=== PATIENT | female | born 1970 | race Two or more races ===

== ENCOUNTER 2019-06-07 11:30 | Inpatient (IN) | payer SELFPAY ==
[~2019-06-07] VITALS: Ht 157.5 cm; Wt 58.7 kg
[2019-06-07 12:57] LABS: Urine Bacteria FEW /hpf (None Seen); Urine Blood TRACE /uL (Negative); Urine Specific Gravity 1.002 (1.001-1.035); Urine WBC <1 /hpf (0 - 5)
[2019-06-07 13:34] LABS: Basophils # (auto) 0.1 uL; Basophils % (auto) 0.7 % (0.0-2.0); Eosinophils # (auto) 0.2 uL; Eosinophils % (auto) 1.7 % (0.0-7.0); Hematocrit 45.3 % (36.0-46.0); Lymphocytes # (auto) 2.3 uL; Lymphocytes % (auto) 17.6 % (10.0-50.0); Mean Corpuscular Hemoglobin 31.1 pg (28.0-32.0); Mean Corpuscular Hgb Conc. 33.1 g/dL (32.0-36.0); Mean Corpuscular Volume 94.1 fL (80.0-100.0); Monocytes # (auto) 0.9 uL; Monocytes % (auto) 6.9 % (0.0-12.0); Neutrophils # (auto) 9.5 uL; Neutrophils % (auto) 73.1 % (37.0-80.0); Platelet Count (auto) 347 10^3/uL (140-450); Red Blood Cells 4.82 10^6/uL (4.0-5.20); Red Cell Distribution Width 13.7 % (11.8-14.3)
[2019-06-07 13:43] LABS: Albumin 3.3 g/dL (3.4-5.0); Calcium 8.8 mg/dL (8.5-10.1); Potassium 4.1 mmol/L (3.5-5.1)
[2019-06-07 13:47] LABS: BUN/Creatinine Ratio 5.2; Bilirubin, Total 0.2 mg/dL (0.2-1.0); Total Protein 7.3 g/dL (6.4-8.2)
[2019-06-07] MEDS ORDERED: VANCOMYCIN 1GM/250ML 250 ML IV ONE (14:30)
[2019-06-07] MEDS ORDERED: PIPERACILLIN-TAZOB 3.375GM 100 ML IV ONE (14:30)
[2019-06-07] MEDS ORDERED: ONDANSETRON HCL 4 MG/2 ML VIAL IV PRN (15:00)
[2019-06-07] MEDS ORDERED: MORPHINE SULF INJ 2 MG/ML SYRINGE 1ML IV PRN (15:00)
[2019-06-07] MEDS: D5W/SOD CHL 0.45%/KCL 20MEQ 1,000 ML IV SCH ×2 (15:46→23:20)
--- NOTE | 2019-06-07 16:36 | NUR ---
recieved report from er
[2019-06-07 17:00] VITALS: BP 115/73
[2019-06-07 17:11] VITALS: BP 115/73
[2019-06-07] MEDS: VANCOMYCIN HCL 125MG/5ML ORAL SOL PO SCH ×2 (17:37→21:23)
--- NOTE | 2019-06-07 19:28 | NUR ---
Opening Shift Note Assumed care of patient, awake and alert x 4. No S/S of distress/SOB. Bed is in lowest position and locked. Call light within reach. Board updated. Fluids infusing at ordered rate. Instructed on POC and to call for assist PRN, will continue to monitor for changes Q1hr and PRN.
[2019-06-07 21:19] VITALS: BP 103/62
[2019-06-07] MEDS: metroNIDAZOLE 500MG/100ML 100 ML IV SCH (21:23)
[2019-06-07] MEDS: FAMOTIDINE (10MG/ML) 2ML VL IV SCH (21:23)
[2019-06-08 04:11] VITALS: BP 94/57
[2019-06-08] MEDS: VANCOMYCIN HCL 125MG/5ML ORAL SOL PO SCH ×4 (05:57→21:41)
[2019-06-08] MEDS: metroNIDAZOLE 500MG/100ML 100 ML IV SCH ×3 (05:57→21:40)
[2019-06-08 06:28] LABS: Basophils # (auto) 0 uL; Basophils % (auto) 0.7 % (0.0-2.0); Eosinophils # (auto) 0.2 uL; Eosinophils % (auto) 2.5 % (0.0-7.0); Hematocrit 40.6 % (36.0-46.0); Hemoglobin 13.8 g/dL (12.2-16.2); Lymphocytes # (auto) 1.3 uL; Lymphocytes % (auto) 18.8 % (10.0-50.0); Mean Corpuscular Hemoglobin 31.9 pg (28.0-32.0); Mean Corpuscular Hgb Conc. 34.1 g/dL (32.0-36.0); Mean Corpuscular Volume 93.7 fL (80.0-100.0); Monocytes # (auto) 0.6 uL; Monocytes % (auto) 8.1 % (0.0-12.0); Neutrophils # (auto) 4.9 uL; Neutrophils % (auto) 69.9 % (37.0-80.0); Nucleated Red Blood Cells % 0.1 %; Platelet Count (auto) 314 10^3/uL (140-450); Red Blood Cells 4.33 10^6/uL (4.0-5.20); Red Cell Distribution Width 13.4 % (11.8-14.3)
[2019-06-08 06:47] LABS: Potassium 3.9 mmol/L (3.5-5.1)
[2019-06-08 06:55] LABS: Albumin 2.7 g/dL (3.4-5.0); BUN/Creatinine Ratio 3.1; Bilirubin, Total 0.5 mg/dL (0.2-1.0); Calcium 7.5 mg/dL (8.5-10.1); Total Protein 6.2 g/dL (6.4-8.2)
--- NOTE | 2019-06-08 08:00 | NUR ---
OPENING NOTE ASSUMED CARE OF PATIENT AWAKE AND ALERT. NO S/S OF DISTRESS NOTED OR COMPLAINTS OF PAIN. PATIENT REPORTING THREE LIQUID STOOLS THROUGHOUT THE NIGHT. UPDATED PT ON POC FOR THE DAY AND ALL QUESTIONS ANSWERED. BED IS IN LOWEST, LOCKED POSITION WITH SIDE RAILS UP X2, AND CALL LIGHT WITHIN REACH. WILL CONTINUE TO MONITOR Q1H AND PRN.
[2019-06-08 08:30] VITALS: BP 97/59
[2019-06-08] MEDS: FAMOTIDINE (10MG/ML) 2ML VL IV SCH (09:52)
[2019-06-08] MEDS: D5W/SOD CHL 0.45%/KCL 20MEQ 1,000 ML IV SCH ×2 (09:53→13:38)
[2019-06-08 12:30] VITALS: BP 100/60
--- NOTE | 2019-06-08 12:33 | NUR ---
Nutrition Assessment/consult Notes please see attached link for complete assessment Est. Needs BW [id number] kcal (25-30 kcal/kgBW), 60-72 gms pro (1.0-1.2 gms/kgBW). Will continue to monitor pertinent labs and reassess nutrient need prn Addendum: 06/08/19 at [address] Amended: Links added.
--- NOTE | 2019-06-08 13:38 | NUR ---
GI CONSULT DR. FIGUEROA AT BEDSIDE DISCUSSING POC WITH PT.
--- NOTE | 2019-06-08 14:36 | NUR ---
SPOKE TO MD SPOKE TO DR. CAR REGARDING PT C/O ABDOMINAL PAIN AND PATIENT NOT WANTING TO TAKE PRN MORPHINE. ORDERS RECEIVED.
[2019-06-08] MEDS: HYDROcodone-ACET 5/325MG TAB PO PRN (15:12)
[2019-06-08 16:56] VITALS: BP 111/64
--- NOTE | 2019-06-08 20:12 | NUR ---
MD Hagan in to see patient. No new orders given.
[2019-06-08 22:03] VITALS: BP 103/64
--- NOTE | 2019-06-09 00:26 | NUR ---
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 Patient will be moved to room 282 under contact isolation. Addendum: 06/09/19 at 0743 by HIWOT CYR RN 283, NOT 282
[2019-06-09] MEDS: D5W/SOD CHL 0.45%/KCL 20MEQ 1,000 ML IV SCH (02:12)
[2019-06-09 05:35] VITALS: BP 105/63
[2019-06-09] MEDS: VANCOMYCIN HCL 125MG/5ML ORAL SOL PO SCH ×4 (06:01→21:04)
[2019-06-09] MEDS: metroNIDAZOLE 500MG/100ML 100 ML IV SCH (06:01)
--- NOTE | 2019-06-09 08:00 | NUR ---
Opening Shift Note Received report on the patient. Awake lying in bed. Patient shows no signs of distress at this time. Discussed the plan of care with the patient. Bed in lowest position, side rails up x2, and the call light is within reach. Will continue to monitor.
--- NOTE | 2019-06-09 08:13 | NUR ---
C-DIFF NOTIFIED BY HAYDEN FROM MICROBIOLOGY PATIENT IS POSITIVE FOR C-DIFF.
[2019-06-09 09:00] VITALS: BP 108/69
[2019-06-09] MEDS ORDERED: GOLYTELY 4L KIT PO ONE (12:00)
[2019-06-09 13:00] VITALS: BP 112/67
[2019-06-09] MEDS: metroNIDAZOLE 500 MG TAB PO SCH ×2 (13:42→21:03)
--- NOTE | 2019-06-09 14:31 | NUR ---
Received consult for [employer] Referral to determine status of pt's insurance. This pt is pending the [facility].
[2019-06-09 17:00] VITALS: BP 106/70
[2019-06-09] MEDS: HYDROcodone-ACET 5/325MG TAB PO PRN (21:03)
[2019-06-09 21:22] VITALS: BP 104/58
[2019-06-10] MEDS ORDERED: GOLYTELY 4L KIT PO ONE (04:00)
[2019-06-10 04:59] VITALS: BP 98/55
[2019-06-10] MEDS: metroNIDAZOLE 500 MG TAB PO SCH ×2 (05:26→14:00)
[2019-06-10] MEDS: VANCOMYCIN HCL 125MG/5ML ORAL SOL PO SCH ×2 (05:27→12:00)
--- NOTE | 2019-06-10 07:20 | NUR ---
OPENING NOTE ASSUMED CARE OF PT. ALERT AND ORIENTED. NO S/S OF SOB/DISTRESS NOTED. DENIES ANY PAIN. SAFETY PRECAUTIONS IN PLACE. BED SET TO LOWEST POSITION/LOCKED. BEDSIDE RIALS UP X2. CALL LIGHT WITHIN REACH. INSTRUCTED PT TO CALL FOR ASSISTANCE. UPDATED ON POC. PT VERBALIZED UNDERSTANDING. WILL CONTINUE TO MONITOR Q 1HR AND PRN.
[2019-06-10 09:00] VITALS: BP 97/59
[2019-06-10 11:26] VITALS: BP 97/56
--- NOTE | 2019-06-10 13:10 | NUR ---
Discharge instructions given as ordered. Encourage to follow up with PMD as instructed. All questions and concerns addressed. Patient verbalized understanding. IV removed with catheter intact, pressure dressing applied.
--- NOTE | 2019-06-10 14:26 | NUR ---
Patient taken to vehicle via wheelchair with all personal belongings, accompanied by staff and family member. No distress noted at time of departure.
== END 2019-06-10 14:26 | disposition home or self-care (01) | DRG 372 ==
LOC: ER 11:35 → OVERFLOW 11:36 → WEST WING 16:45
PROVIDERS: ADMIT Nurse Practitioner Acute Care; ATTEND Internal Medicine
DX: A04.72 Enterocolitis due to Clostridium difficile, not specified as recurrent (principal); R65.10 Systemic inflammatory response syndrome (SIRS) of non-infectious origin without acute organ dysfunction; K76.89 Other specified diseases of liver
CPT/HCPCS: 36415; 74176; 80053; 81001; 83605; 83690; 85025; 87040; 87045; 87427; 87493; 96365; G0378; J2543; J3490